=== PATIENT | female | born 1970 | race Caucasian/White ===

== ENCOUNTER 2022-01-11 00:19 | Emergency (ER) | payer OTHER ==
[~2022-01-11] VITALS: Ht 165.1 cm; Wt 108.0 kg
--- NOTE | 2022-01-11 00:47 | ED General ---
General Chief Complaint: General Problems/Pain Stated Complaint: CAN'T SLEEP,FEELS COLD,SHAKEY Source of Information: Patient (VERY VAGUE AND DIFFICULT HISTORIAN, AND NOT FORTHCOMING WITH INFORMATION) History of Present Illness Date Seen by Provider: Jan 11, 2022 Time Seen by Provider: 00:29 Initial Comments PT ARRIVES VIA POV FROM HOME STATES SHE "CAN'T SLEEP" AND SHE'S TIRED STATES HE FEELS COLD, AND SHE FEELS SHAKEY STATES "I JUST DON'T FEEL GOOD" BUT CANNOT ELABORATE AND UNABLE TO GIVE ANY SPECIFIC SYMPTOMS OF HOW SHE DOES NOT FEEL GOOD NO OTHER SYMPTOMS UNABLE TO STATE HOW LONG THIS HAS BEEN GOING ON STATES SHE HAS BEEN UNDER ALOT OF STRESS--TRYING TO HELP HER ELDERLY PARENTS PT CAN'T REMEMBER IF SHE HAS TAKEN HER BLOOD PRESSURE MEDICATION TODAY OR NOT--STATES "I MIGHT HAVE MISSED A DAY OR TWO" PT IS NOT COVID OR FLU VACCINATED PCP: DR. TINEO IN [place]--BUT STATES SHE JUST GOES TO URGENT CARE IF SHE NEEDS ANYTHING, AND SEES HIM ONCE OR TWICE A YEAR--HAS NOT SEEN HIM RECENTLY Allergies and Home Medications Allergies Coded Allergies: No Allergy Information Available (Unverified , 01/11/22) Patient Home Medication List Home Medication List Reviewed: Yes Hydroxyzine Pamoate (Hydroxyzine Pamoate) 50 Mg Capsule, 50 MG PO Q6H PRN for ANXIETY Prescribed by: TIFFANY PINEDA on 01/11/22 0224 Review of Systems Review of Systems Constitutional: see HPI EENTM: no symptoms reported Respiratory: no symptoms reported Cardiovascular: no symptoms reported Gastrointestinal: no symptoms reported Genitourinary: no symptoms reported Musculoskeletal: no symptoms reported Skin: no symptoms reported Psychiatric/Neurological: See HPI, Anxiety Hematologic/Lymphatic: No Symptoms Reported Immunological/Allergic: no symptoms reported Past Bfrkbdv-Nxvkgi-Fwqtsg Hx Patient Social History Tobacco Use?: No Substance use?: No Alcohol Use?: No Past Medical History Cardiac: Yes (NO BLOOD THINNERS FOR OVER 6 MONTHS) Deep Vein Thrombosis, Hypertension Neurological: No Genitourinary: No Gastrointestinal: No Musculoskeletal: No Endocrine: Yes (OBESITY) HEENT: No Cancer: No Psychosocial: Yes Sleep Difficulties, Anxiety Integumentary: No Blood Disorders: No Physical Exam Vital Signs Vital Signs - First Documented 01/11/22 00:29 Temp 36.2 Pulse 87 Resp 20 B/P (MAP) 188/97 (127) Pulse Ox 97 O2 Delivery Room Air Capillary Refill : Height, Weight, BMI Height: '" Weight: lbs. oz. kg; BMI Method: General Appearance: No Apparent Distress, WD/WN, Anxious, Obese Neck: Normal Inspection Respiratory: Chest Non Tender, Normal Breath Sounds, No Accessory Muscle Use, No Respiratory Distress Cardiovascular: Regular Rate, Rhythm, No Edema, No JVD, No Murmur, Normal Peripheral Pulses Gastrointestinal: Non Tender, Soft Back: No CVA Tenderness Extremity: Normal Capillary Refill, Normal Inspection, Normal Range of Motion, Non Tender, No Calf Tenderness, No Pedal Edema Neurologic/Psychiatric: Alert, Oriented x3, No Motor/Sensory Deficits, bar welder II- XII Norm as Tested, Other (ANXIOUS) Progress/Results/Core Measures Suspected Sepsis SIRS Temperature: Pulse: Respiratory Rate: Laboratory Tests 01/11/22 00:41: White Blood Count 11.0 Blood Pressure / Mean: Laboratory Tests 01/11/22 00:41: Creatinine 0.84, INR Comment 0.9, Platelet Count 378, Total Bilirubin 0.4 Results/Orders Lab Results Laboratory Tests Test 01/11/22 00:36 01/11/22 00:41 01/11/22 00:47 01/11/22 01:33 Range/Units Influenza Type A (RT-PCR) Not Detected Not Detecte Influenza Type B (RT-PCR) Not Detected Not Detecte SARS-CoV-2 RNA (RT-PCR) Not Detected Not Detecte White Blood Count 11.0 4.3-11.0 10^3/uL Red Blood Count 4.97 3.80-5.11 10^6/uL Hemoglobin 13.7 11.5-16.0 g/dL Hematocrit 41 35-52 % Mean Corpuscular Volume 82 80-99 fL Mean Corpuscular Hemoglobin 28 25-34 pg Mean Corpuscular Hemoglobin Concent 34 32-36 g/dL Red Cell Distribution Width 13.0 10.0-14.5 % Platelet Count 378 130-400 10^3/uL Mean Platelet Volume 9.4 9.0-12.2 fL Immature Granulocyte % (Auto) 1 % Neutrophils (%) (Auto) 52 42-75 % Lymphocytes (%) (Auto) 38 12-44 % Monocytes (%) (Auto) 6 0-12 % Eosinophils (%) (Auto) 2 0-10 % Basophils (%) (Auto) 1 0-10 % Neutrophils # (Auto) 5.8 1.8-7.8 10^3/uL Lymphocytes # (Auto) 4.2 H 1.0-4.0 10^3/uL Monocytes # (Auto) 0.7 0.0-1.0 10^3/uL Eosinophils # (Auto) 0.3 0.0-0.3 10^3/uL Basophils # (Auto) 0.1 0.0-0.1 10^3/uL Immature Granulocyte # (Auto) 0.1 0.0-0.1 10^3/uL Prothrombin Time 12.9 12.2-14.7 SEC INR Comment 0.9 0.8-1.4 Activated Partial Thromboplast Time 29 24-35 SEC D-Dimer < 0.27 0.00-0.49 UG/ML Sodium Level 137 135-145 MMOL/L Potassium Level 4.0 3.6-5.0 MMOL/L Chloride Level 102 98-107 MMOL/L Carbon Dioxide Level 22 21-32 MMOL/L Anion Gap 13 5-14 MMOL/L Blood Urea Nitrogen 17 7-18 MG/DL Creatinine 0.84 0.60-1.30 MG/DL Estimat Glomerular Filtration Rate 84 BUN/Creatinine Ratio 20 Glucose Level 170 H 70-105 MG/DL Calcium Level 9.9 8.5-10.1 MG/DL Corrected Calcium 9.6 8.5-10.1 MG/DL Magnesium Level 2.0 1.6-2.4 MG/DL Total Bilirubin 0.4 0.1-1.0 MG/DL Aspartate Amino Transf (AST/SGOT) 47 H 5-34 U/L Alanine Aminotransferase (ALT/SGPT) 67 H 0-55 U/L Alkaline Phosphatase 102 40-136 U/L Total Creatine Kinase 128 29-168 U/L Creatine Kinase MB 1.4 <6.6 NG/ML Myoglobin 48.8 10.0-92.0 NG/ML Troponin I < 0.028 <0.028 NG/ML B-Type Natriuretic Peptide < 10.0 <100.0 PG/ML Total Protein 8.2 6.4-8.2 GM/DL Albumin 4.4 3.2-4.5 GM/DL Free Thyroxine 1.00 0.70-1.48 NG/DL TSH [place] Testing 6.32 H 0.35-4.94 UIU/ML Serum Alcohol < 10 <10 MG/DL Serum Test, Qualitative NEGATIVE NEGATIVE Urine Color YELLOW Urine Clarity CLEAR Urine pH 6.0 5-9 Urine Specific [place] 1.015 L 1.016-1.022 Urine Protein NEGATIVE NEGATIVE Urine Glucose (UA) NEGATIVE NEGATIVE Urine Ketones NEGATIVE NEGATIVE Urine Nitrite NEGATIVE NEGATIVE Urine Bilirubin NEGATIVE NEGATIVE Urine Urobilinogen 0.2 < = 1.0 MG/DL Urine Leukocyte Esterase NEGATIVE NEGATIVE Urine RBC (Auto) NEGATIVE NEGATIVE Urine RBC NONE /HPF Urine WBC RARE /HPF Urine Squamous Epithelial Cells 0-2 /HPF Urine Crystals NONE /LPF Urine Bacteria TRACE /HPF Urine Casts NONE /LPF Urine Mucus SMALL H /LPF Urine Culture Indicated NO Urine Opiates Screen NEGATIVE NEGATIVE Urine Oxycodone Screen NEGATIVE NEGATIVE Urine Methadone Screen NEGATIVE NEGATIVE Urine Propoxyphene Screen NEGATIVE NEGATIVE Urine Barbiturates Screen NEGATIVE NEGATIVE Ur Tricyclic Antidepressants Screen NEGATIVE NEGATIVE Urine Phencyclidine Screen NEGATIVE NEGATIVE Urine Amphetamines Screen NEGATIVE NEGATIVE Urine Methamphetamines Screen NEGATIVE NEGATIVE Urine Benzodiazepines Screen NEGATIVE NEGATIVE Urine Cocaine Screen NEGATIVE NEGATIVE Urine Cannabinoids Screen NEGATIVE NEGATIVE My Orders Orders - TIFFANY PINEDA DO Covid 19 Inhouse Test (01/11/22:29) Influenza A And B By Pcr (01/11/22:29) Isolation Central Supply Req (01/11/22:29) Ed Iv/Invasive Line Start (01/11/22 00:48) Ekg Tracing (01/11/22:48) Monitor-Rhythm Ecg Trace Only (01/11/22 00:48) Chest 1 View, Ap/Pa Only (01/11/22 00:48) Alcohol (01/11/22 00:48) Bnp [place] (01/11/22 00:48) Cbc With Automated Diff (01/11/22:48) Comprehensive Metabolic Panel (01/11/22:48) Creatine Kinase (01/11/22 00:48) Creatine Kinase Mb (01/11/22 00:48) Fibrin Degradation Products (01/11/22:48) Drug Screen Stat (Urine) (01/11/22 00:48) Magnesium (01/11/22 00:48) Protime With Inr (8/25/22 00:48) Partial Thromboplastin Time (01/11/22 00:48) Thyroid Analyzer (01/11/22 00:48) Ua Culture If Indicated (01/11/22 00:48) Myoglobin Serum (01/11/22 00:48) Troponin I [place] (01/11/22 00:48) Hcg,Qualitative Serum (01/11/22 01:22) Free T4 (Free Thyroxine) (01/11/22 00:41) Hydroxyzine Cap/Tab (Vistaril) (01/11/22 02:30) Vital Signs/I&O 01/11/22 01/11/22 01/11/22 00:29 00:29 02:24 Temp 36.2 Pulse 87 80 Resp 20 16 B/P (MAP) 188/97 (127) 156/96 Pulse Ox 97 96 O2 Delivery Room Air Room Air Room Air Capillary Refill : Progress Note : Progress Note PPE WORN COVID TESTING DONE PT CALMED SOME DURING ER STAY AND BP CAME DOWN WITHOUT TREATMENT ALL SYMPTOMS RESOLVED DURING ER STAY, WITHOUT TREATMENT HYDRALAZINE GIVEN PRIOR TO DISMISSAL TO HELP WITH BOTH SLEEP AND ANXIETY FOR TONIGHT. PT REPEATS MULTIPLE TIMES THROUGHOUT ER STAY--"IT'S JUST THAT I'M STRESSED AND I CAN'T SLEEP" ADMITS TO FREQUENTLY FORGETTING TO TAKE HER BLOOD PRESSURE MEDICATION, AND LATER STATES SHE IS SURE SHE DID NOT TAKE IT TODAY ADVISED OF IMPORTANCE OF NOT MISSING ANY DOSES OF HER BLOOD PRESSURE MEDICATION ALSO ADVISED OF IMPORTANCE OF FOLLOW UP WITH HER PCP FOR FURTHER CARE ECG Initial ECG Impression Date: Jan 11, 2022 Initial ECG Impression Time: 00:50 Initial ECG Rate: 81 Initial ECG Rhythm: Normal Sinus Initial ECG Impression: Normal Initial ECG Comparisson: No Previous ECG Available Diagnostic Imaging Comments CXR--NO ACUTE PROCESS, PENDING RADIOLOGIST REVIEW Reviewed: Reviewed by Me Departure Impression Primary Impression: HTN (hypertension) Additional Impressions: Anxiety Hyperglycemia Elevated TSH Disposition: HOME, SELF-CARE Condition: Improved Departure-Patient Inst. Decision time for Depature: 02:23 Referrals: TRELL GOMEZ MD (PCP) Primary Care Physician Patient Instructions: High Blood Sugar, Adult ED, High Blood Pressure ED, Anxiety, Adult ED, Tips to Help You [place] in Uncertain Times Add. Discharge Instructions: TAKE YOUR REGULAR MEDICATIONS PRESCRIBED--DO NOT MISS DOSES OF M EDICATIONS--GET A PILL ORGANIZER TO HELP REMIND YOU TO TAKE MEDICATIONS FOLLOW UP WITH YOUR REGULAR DR THIS WEEK FOR FURTHER CARE All discharge instructions reviewed with patient and/or family. Voiced understanding. Scripts Hydroxyzine Pamoate (Hydroxyzine Pamoate) 50 Mg Capsule 50 MG PO Q6H PRN for ANXIETY, #15 CAP Prov: TIFFANY PINEDA DO 01/11/22 TIFFANY PINEDA DO Jan 11, 2022 00:47
[2022-01-11 00:56] LABS: BASOPHILS # (AUTO) 0.1 10^3/uL (0.0-0.1); BASOPHILS % (AUTO) 1 % (0-10); EOSINOPHILS # (AUTO) 0.3 10^3/uL (0.0-0.3); EOSINOPHILS % (AUTO) 2 % (0-10); HEMATOCRIT 41 % (35-52); HEMOGLOBIN 13.7 g/dL (11.5-16.0); LYMPHOCYTES # (AUTO) 4.2 10^3/uL (1.0-4.0); LYMPHOCYTES % (AUTO) 38 % (12-44); MEAN CORPUSCULAR HEMOGLOBIN 28 pg (25-34); MEAN CORPUSCULAR HGB CONC 34 g/dL (32-36); MEAN CORPUSCULAR VOLUME 82 fL (80-99); MEAN PLATELET VOLUME 9.4 fL (9.0-12.2); MONOCYTES # (AUTO) 0.7 10^3/uL (0.0-1.0); MONOCYTES % (AUTO) 6 % (0-12); NEUTROPHILS # (AUTO) 5.8 10^3/uL (1.8-7.8); NEUTROPHILS % (AUTO) 52 % (42-75); PLATELET COUNT 378 10^3/uL (130-400)
[2022-01-11 01:08] LABS: ALBUMIN 4.4 GM/DL (3.2-4.5); CHLORIDE 102 MMOL/L (98-107); SODIUM 137 MMOL/L (135-145)
[2022-01-11 01:09] LABS: CALCIUM 9.9 MG/DL (8.5-10.1)
[2022-01-11 01:11] LABS: GLUCOSE 170 MG/DL (70-105); TOTAL PROTEIN 8.2 GM/DL (6.4-8.2)
[2022-01-11 01:12] LABS: CARBON DIOXIDE 22 MMOL/L (21-32)
[2022-01-11 01:13] LABS: BILIRUBIN,TOTAL 0.4 MG/DL (0.1-1.0)
[2022-01-11 01:14] LABS: ALKALINE PHOSPHATASE 102 U/L (40-136)
[2022-01-11 01:15] LABS: CREATININE SERUM 0.84 MG/DL (0.60-1.30); GFR ESTIMATED 84
[2022-01-11 01:16] LABS: BUN/CREATININE RATIO 20
[2022-01-11 01:17] LABS: ALANINE AMINOTRANSFERASE 67 U/L (0-55)
[2022-01-11 01:18] LABS: CREATINE KINASE 128 U/L (29-168)
[2022-01-11 01:25] LABS: CREATINE KINASE MB 1.4 NG/ML (<6.6)
[2022-01-11 01:27] LABS: FIBRIN DEGRADATION PRODUCTS < 0.27 UG/ML (0.00-0.49); INR 0.9 (0.8-1.4); PARTIAL THROMBOPLASTIN TIME 29 SEC (24-35); PROTHROMBIN TIME PATIENT 12.9 SEC (12.2-14.7)
[2022-01-11 01:37] LABS: BILIRUBIN,URINE NEGATIVE (NEGATIVE); CLARITY,URINE CLEAR; COLOR,URINE YELLOW; GLUCOSE, URINE (UA) NEGATIVE (NEGATIVE); KETONES,URINE NEGATIVE (NEGATIVE); LEUKOCYTE ESTERASE ,URINE NEGATIVE (NEGATIVE); NITRITE,URINE NEGATIVE (NEGATIVE); PROTEIN,URINE NEGATIVE (NEGATIVE)
[2022-01-11 01:38] LABS: TSH (THYROID ANALYZER) 6.32 UIU/ML (0.35-4.94)
[2022-01-11 01:46] LABS: BACTERIA,URINE TRACE /HPF; SQUAMOUS EPITHELIAL CELL,UR 0-2 /HPF; WBC,URINE RARE /HPF
[2022-01-11 02:04] LABS: AMPHETAMINE SCREEN, URINE NEGATIVE (NEGATIVE); BARBITURATE SCREEN URINE NEGATIVE (NEGATIVE); BENZODIAZEPINES SCREEN URINE NEGATIVE (NEGATIVE); CANNABINOID SCREEN, URINE NEGATIVE (NEGATIVE); COCAINE SCREEN URINE NEGATIVE (NEGATIVE); METHADONE STAT NEGATIVE (NEGATIVE); OPIATE SCREEN URINE NEGATIVE (NEGATIVE); OXYCODONE STAT NEGATIVE (NEGATIVE); PROPOXYPHENE STAT NEGATIVE (NEGATIVE); TRICYCLIC ANTIDEPRESSANTS SCRE NEGATIVE (NEGATIVE)
[2022-01-11 02:24] VITALS: BP 156/96
[2022-01-11] MEDS ORDERED: HYDR50CA3 PO (02:24)
[2022-01-11] MEDS: hydrOXYzine (VISTARIL/ATARAX) 25 MG capsule/tablet PO ONE ×2 (02:37→02:55)
--- NOTE | 2022-01-11 06:05 | Diagnostic Imaging Report ---
INDICATION: Chest pain. No prior examinations are available for comparison. FINDINGS: There is cardiomegaly. There is some minimal venous congestion. There is no pleural effusion or pneumothorax. The mediastinum is unremarkable. IMPRESSION: Cardiomegaly and some minimal central pulmonary venous congestion. Dictated by: Dictated on workstation # [id number]
== END 2022-01-11 02:58 | disposition home or self-care (01) ==
LOC: ER 00:25
DX: I10 Essential (primary) hypertension (principal); F41.9 Anxiety disorder, unspecified; R94.6 Abnormal results of thyroid function studies; R73.9 Hyperglycemia, unspecified; E66.9 Obesity, unspecified; Z20.822 Contact with and (suspected) exposure to COVID-19; Z28.310 Unvaccinated for COVID-19
CPT/HCPCS: 71045; 80053; 80306; 81000; 82550; 82553; 83735; 83874; 83880; 84439; 84443; 84484; 84703; 85025; 85379; 85610; 85730; 87636; 93005; 93041; 99284; G0480; 36415; 80320

== ENCOUNTER 2023-04-25 01:15 | Emergency (ER) | payer OTHER ==
[~2023-04-25] VITALS: Ht 165.1 cm; Wt 113.0 kg
[~2023-04-25 01:15] MED LIST: HYDR50CA3 PO
--- NOTE | 2023-04-25 01:40 | ED General ---
General Stated Complaint: NAUSEA/SHAKEY/ANXIOUS Source of Information: Patient (VERY VAGUE AND DIFFICULT HISTORIAN), Old Records History of Present Illness Date Seen by Provider: Apr 25, 2023 Time Seen by Provider: 01:35 Initial Comments PT ARRIVES VIA POV FROM HOME PT STATES "I JUST DON'T KNOW HOW TO DESCRIBE IT" "I JUST DIDN'T FEEL WELL" STATES SHE IS FEELING ANXIOUS AND SHAKEY--HAS HAD THIS BEFORE STATES SHE "GOT TO BED REALLY LATE" , WENT TO SLEEP AND "IT JOLTED ME AWAKE" AND THEN AFTER SHE WOKE UP HER HEART STARTED RACING AND SHE "JUST DIDN'T FEEL GOOD" AND THEN SHE HAD NAUSEA AND DRY HEAVES NO CHEST PAIN NO SHORTNESS OF BREATH NO SWEATS NO DIZZINESS OR SYNCOPE PT STATES SHE HAS SLEEP APNEA AND WEARS CPAP, AND DID HAVE IT ON WHEN SHE WENT TO BED AND IT WAS STILL ON WHEN SHE WOKE UP SHE STATES SHE HAS HAD "SINUS [id number]" FOR THE LAST COUPLE OF DAYS, SHE HAS FELT REALLY TIRED, AND HAS HAD DIARRHEA FOR THE LAST FEW DAYS. SHE STATES SHE HAS IBS AND THOUGHT DIARRHEA WAS FROM THAT NO ABDOMINAL PAIN NO URINARY SYMPTOMS NO FEVER AT ANY TIME NO HEADACHE NO BODY ACHES NO PARESTHESIAS OR MOTOR DEFICITS PT HAS BEEN EATING AND DRINKING NORMALLY, AND URINATING NORMALLY PT IS NOT COVID OR FLU VACCINATED SHE ALSO HAS HISTORY OF HTN, AND ANXIETY SHE IS DEBORAH-MENOPAUSAL, WITH LMP 01/02/23. SHE STATES SHE WAS DX WITH DIABETES A COUPLE OF MONTHS AGO AND WAS STARTED ON METFORMIN. SHE HAS GLUCOMETER, BUT HAS NOT BEEN CHECKING HER BLOOD SUGAR. SHE STATES SHE HAS NOT MISSED ANY DOSES OF ANY OF HER MEDICATIONS AND ALWAYS WEARS HER CPAP AT NIGHT. PCP: DR. GOMEZ IN [place]--SAW HIM A COUPLE OF MONTHS AGO, AND HAS AN JOSH OINTMENT LATER THIS MONTH FOR FOLLOW UP Allergies and Home Medications Allergies Coded Allergies: No Allergy Information Available (Unverified , 01/11/22) Patient Home Medication List Home Medication List Reviewed: Yes Hydroxyzine Pamoate (Hydroxyzine Pamoate) 50 Mg Capsule, 50 MG PO Q6H PRN for ANXIETY Prescribed by: TIFFANY PINEDA on 01/11/22 0224 Review of Systems Review of Systems Constitutional: see HPI EENTM: see HPI Respiratory: see HPI Cardiovascular: see HPI Gastrointestinal: see HPI Genitourinary: no symptoms reported Musculoskeletal: no symptoms reported Skin: no symptoms reported Psychiatric/Neurological: See HPI Hematologic/Lymphatic: No Symptoms Reported Immunological/Allergic: no symptoms reported Past Qfhlxzq-Fgsqrs-Kaqeym Hx Patient Social History Tobacco Use?: No Smoking Status: Never a Smoker Smokeless Tobacco Frequency: Never a User Use of E-Cig and/or Vaping dev: No Use of E-Cig and/or Vaping [place]: Never a User Substance use?: No Alcohol Use?: No Immunizations Up To Date First/Initial COVID19 Vaccinat: NOPE Second COVID19 Vaccination Luis: NOPE Third COVID19 Vaccination Date: NOPE Past Medical History Surgeries: Yes ( X 1) Section, Tonsillectomy Respiratory: Yes Sleep Apnea Currently Using CPAP: Yes Cardiac: Yes (NO BLOOD THINNERS FOR OVER 6 MONTHS) Deep Vein Thrombosis, Hypertension Neurological: No Reproductive Disorders: No Genitourinary: No Gastrointestinal: No Musculoskeletal: No Endocrine: Yes (OBESITY) Diabetes, Non-Insulin dep HEENT: Yes (S/P TONSILLECTOMY) Tonsilitis Cancer: No Psychosocial: Yes Sleep Difficulties, Anxiety Integumentary: No Blood Disorders: No Physical Exam Vital Signs Vital Signs - First Documented 04/25/23 01:32 Temp 36.1 Pulse 80 Resp 20 B/P (MAP) 153/91 (111) Pulse Ox 95 O2 Delivery Room Air Capillary Refill : Height, Weight, BMI Height: '" Weight: lbs. oz. kg; 39.00 BMI Method: General Appearance: No Apparent Distress, WD/WN, Obese HEENT: PERRL/EOMI, Normal ENT Inspection Neck: Full Range of Motion, Normal Inspection, Non Tender, Supple Respiratory: Chest Non Tender, Normal Breath Sounds, No Accessory Muscle Use, No Respiratory Distress Cardiovascular: Regular Rate, Rhythm, No Edema, No Murmur, Normal Peripheral Pulses Gastrointestinal: Normal Bowel Sounds, Non Tender, Soft Back: No CVA Tenderness Extremity: Normal Capillary Refill, Normal Inspection, Normal Range of Motion, Non Tender, No Calf Tenderness, No Pedal Edema Neurologic/Psychiatric: Alert, Oriented x3, No Motor/Sensory Deficits, doweler II- XII Norm as Tested Skin: Normal Color, Warm/Dry Progress/Results/Core Measures Suspected Sepsis SIRS Temperature: Pulse: Respiratory Rate: Laboratory Tests 04/25/23 02:13: White Blood Count 11.8H Blood Pressure / Mean: Laboratory Tests 04/25/23 02:13: Creatinine 0.84, Platelet Count 355, Total Bilirubin 0.2 Results/Orders Lab Results Laboratory Tests Test 04/25/23 01:42 04/25/23 01:49 04/25/23 02:06 04/25/23 02:13 Range/Units Influenza Type A (RT-PCR) Not Detected Not Detecte Influenza Type B (RT-PCR) Not Detected Not Detecte SARS-CoV-2 RNA (RT-PCR) Not Detected Not Detecte Urine Color YELLOW Urine Clarity CLEAR Urine pH 7.0 5-9 Urine Specific [place] 1.020 1.016-1.022 Urine Protein NEGATIVE NEGATIVE Urine Glucose (UA) NEGATIVE NEGATIVE Urine Ketones NEGATIVE NEGATIVE Urine Nitrite NEGATIVE NEGATIVE Urine Bilirubin NEGATIVE NEGATIVE Urine Urobilinogen 0.2 < = 1.0 MG/DL Urine Leukocyte Esterase NEGATIVE NEGATIVE Urine RBC (Auto) NEGATIVE NEGATIVE Urine RBC NONE /HPF Urine WBC NONE /HPF Urine Squamous Epithelial Cells 0-2 /HPF Urine Crystals NONE /LPF Urine Bacteria TRACE /HPF Urine Casts NONE /LPF Urine Mucus NEGATIVE /LPF Urine Culture Indicated NO Glucometer 180 H 70-110 MG/DL White Blood Count 11.8 H 4.3-11.0 10^3/uL Red Blood Count 4.71 3.80-5.11 10^6/uL Hemoglobin 13.2 11.5-16.0 g/dL Hematocrit 39 35-52 % Mean Corpuscular Volume 84 80-99 fL Mean Corpuscular Hemoglobin 28 25-34 pg Mean Corpuscular Hemoglobin Concent 34 32-36 g/dL Red Cell Distribution Width 12.6 10.0-14.5 % Platelet Count 355 130-400 10^3/uL Mean Platelet Volume 9.6 9.0-12.2 fL Immature Granulocyte % (Auto) 1 % Neutrophils (%) (Auto) 60 42-75 % Lymphocytes (%) (Auto) 30 12-44 % Monocytes (%) (Auto) 7 0-12 % Eosinophils (%) (Auto) 2 0-10 % Basophils (%) (Auto) 1 0-10 % Neutrophils # (Auto) 7.1 1.8-7.8 10^3/uL Lymphocytes # (Auto) 3.5 1.0-4.0 10^3/uL Monocytes # (Auto) 0.8 0.0-1.0 10^3/uL Eosinophils # (Auto) 0.3 0.0-0.3 10^3/uL Basophils # (Auto) 0.1 0.0-0.1 10^3/uL Immature Granulocyte # (Auto) 0.1 0.0-0.1 10^3/uL Sodium Level 137 135-145 MMOL/L Potassium Level 4.1 3.6-5.0 MMOL/L Chloride Level 105 98-107 MMOL/L Carbon Dioxide Level 23 21-32 MMOL/L Anion Gap 9 5-14 MMOL/L Blood Urea Nitrogen 13 7-18 MG/DL Creatinine 0.84 0.60-1.30 MG/DL Estimat Glomerular Filtration Rate 83 BUN/Creatinine Ratio 15 Glucose Level 181 H 70-105 MG/DL Calcium Level 9.2 8.5-10.1 MG/DL Corrected Calcium 9.3 8.5-10.1 MG/DL Magnesium Level 2.1 1.6-2.4 MG/DL Total Bilirubin 0.2 0.1-1.0 MG/DL Aspartate Amino Transf (AST/SGOT) 21 5-34 U/L Alanine Aminotransferase (ALT/SGPT) 32 0-55 U/L Alkaline Phosphatase 95 40-136 U/L Troponin I < 0.028 <0.028 NG/ML Total Protein 7.2 6.4-8.2 GM/DL Albumin 3.9 3.2-4.5 GM/DL TSH [place] Testing 7.09 H 0.35-4.94 UIU/ML My Orders Orders - TIFFANY PINEDA DO Covid 19 Inhouse Test (04/25/23 01:39) Ekg Tracing (04/25/23:39) Monitor-Rhythm Ecg Trace Only (04/25/23:39) Cbc And Automated Diff (04/25/23:39) Comprehensive Metabolic Panel (04/25/23:39) Magnesium (04/25/23:39) Thyroid Analyzer (04/25/23:39) Ua Culture If Indicated (04/25/23:39) Troponin I [place] (04/25/23:39) Influenza A And B By Pcr (04/25/23 01:39) Urine Bedside (04/25/23 01:41) Accucheck Stat ONCE (04/25/23 02:04) Ed Iv/Invasive Line Start (04/25/23 02:04) Free T4 (Free Thyroxine) (04/25/23 02:13) Vital Signs/I&O 04/25/23 01:32 Temp 36.1 Pulse 80 Resp 20 B/P (MAP) 153/91 (111) Pulse Ox 95 O2 Delivery Room Air Capillary Refill : Progress Note : Progress Note VITALS ON ARRIVAL: TEMP 36.1=97.0, HR 80, RR 20, BP 153/91, O2 SAT 95% ON ROOM AIR ACCUCHECK 180 LABS: -CBC NORMAL -CMP WITH GLUCOSE 181, OTHERWISE BRIGIDO -MG NORMAL -TROPONIN NEGATIVE -BNP NORMAL -TSH 7.09 -UA CLEAR -HCG NEGATIVE -COVID/FLU NEGATIVE EKG NORMAL PT HAD NO SYMPTOMS DURING ER STAY VITALS STABLE DISCUSSED TEST RESULTS, ANTICIPATED COURSE, SYMPTOMATIC TREATMENT, NEED FOR FOLLOW UP AND RETURN PRECAUTIONS REVIEWED PRIOR ER RECORD--ONLY 1 OTHER VISIT ECG Initial ECG Impression Date: Apr 25, 2023 Initial ECG Impression Time: 01:59 Initial ECG Rate: 79 Initial ECG Rhythm: Normal Sinus Initial ECG Intervals: Normal Initial ECG Impression: Normal Initial ECG Comparisson: Unchanged Comment INTERPRETED BY ME Departure Impression Primary Impression: Palpitations Additional Impressions: Anxiety HTN (hypertension) NIDDM Elevated TSH Deborah-menopausal Disposition: 01 HOME, SELF-CARE Condition: Stable Departure-Patient Inst. Decision time for Depature: 03:07 Referrals: TRELL GOMEZ MD (PCP) Primary Care Physician Patient Instructions: Anxiety, Adult ED, DASH Diet, High Blood Pressure ED, Palpitations ED, Type 2 Diabetes (DC), Thyroid Stimulating Hormone Test Add. Discharge Instructions: HOME, REST CONTINUE YOUR REGULAR MEDICATIONS PRESCRIBED FOLLOW UP WITH YOUR DR FOR FURTHER CARE RETURN TO ER IF SYMPTOMS WORSEN TIFFANY PINEDA DO Apr 25, 2023 01:40
[2023-04-25 01:53] LABS: CLARITY,URINE CLEAR; COLOR,URINE YELLOW; GLUCOSE, URINE (UA) NEGATIVE (NEGATIVE); PROTEIN,URINE NEGATIVE (NEGATIVE)
[2023-04-25 01:54] LABS: BILIRUBIN,URINE NEGATIVE (NEGATIVE); KETONES,URINE NEGATIVE (NEGATIVE); LEUKOCYTE ESTERASE ,URINE NEGATIVE (NEGATIVE); NITRITE,URINE NEGATIVE (NEGATIVE)
[2023-04-25 02:02] LABS: BACTERIA,URINE TRACE /HPF; SQUAMOUS EPITHELIAL CELL,UR 0-2 /HPF
[2023-04-25 02:20] LABS: BASOPHILS # (AUTO) 0.1 10^3/uL (0.0-0.1); BASOPHILS % (AUTO) 1 % (0-10); EOSINOPHILS # (AUTO) 0.3 10^3/uL (0.0-0.3); EOSINOPHILS % (AUTO) 2 % (0-10); HEMATOCRIT 39 % (35-52); HEMOGLOBIN 13.2 g/dL (11.5-16.0); LYMPHOCYTES # (AUTO) 3.5 10^3/uL (1.0-4.0); LYMPHOCYTES % (AUTO) 30 % (12-44); MEAN CORPUSCULAR HEMOGLOBIN 28 pg (25-34); MEAN CORPUSCULAR HGB CONC 34 g/dL (32-36); MEAN CORPUSCULAR VOLUME 84 fL (80-99); MEAN PLATELET VOLUME 9.6 fL (9.0-12.2); MONOCYTES # (AUTO) 0.8 10^3/uL (0.0-1.0); MONOCYTES % (AUTO) 7 % (0-12); NEUTROPHILS # (AUTO) 7.1 10^3/uL (1.8-7.8); NEUTROPHILS % (AUTO) 60 % (42-75); PLATELET COUNT 355 10^3/uL (130-400); WHITE BLOOD COUNT 11.8 10^3/uL (4.3-11.0)
[2023-04-25 02:29] LABS: ALBUMIN 3.9 GM/DL (3.2-4.5)
[2023-04-25 02:30] LABS: CHLORIDE 105 MMOL/L (98-107); POTASSIUM 4.1 MMOL/L (3.6-5.0); SODIUM 137 MMOL/L (135-145)
[2023-04-25 02:31] LABS: CALCIUM 9.2 MG/DL (8.5-10.1)
[2023-04-25 02:32] LABS: GLUCOSE 181 MG/DL (70-105); TOTAL PROTEIN 7.2 GM/DL (6.4-8.2)
[2023-04-25 02:33] LABS: CARBON DIOXIDE 23 MMOL/L (21-32)
[2023-04-25 02:34] LABS: BILIRUBIN,TOTAL 0.2 MG/DL (0.1-1.0)
[2023-04-25 02:35] LABS: ALKALINE PHOSPHATASE 95 U/L (40-136)
[2023-04-25 02:36] LABS: CREATININE SERUM 0.84 MG/DL (0.60-1.30); GFR ESTIMATED 83
[2023-04-25 02:37] LABS: BUN/CREATININE RATIO 15
[2023-04-25 02:38] LABS: ALANINE AMINOTRANSFERASE 32 U/L (0-55)
[2023-04-25 02:39] LABS: MAGNESIUM 2.1 MG/DL (1.6-2.4)
[2023-04-25 02:59] LABS: TSH (THYROID ANALYZER) 7.09 UIU/ML (0.35-4.94)
[2023-04-25 03:22] VITALS: BP 146/89
[2023-04-25 03:34] LABS: FREE T4 (FREE THYROXINE) 0.94 NG/DL (0.70-1.48)
== END 2023-04-25 03:22 | disposition home or self-care (01) ==
LOC: EDUNIT# 01:15 → ER 01:19
DX: F41.9 Anxiety disorder, unspecified (principal); I10 Essential (primary) hypertension; E11.9 Type 2 diabetes mellitus without complications; R94.6 Abnormal results of thyroid function studies; G47.30 Sleep apnea, unspecified; E66.9 Obesity, unspecified; Z68.39 Body mass index [BMI] 39.0-39.9, adult; Z99.89 Dependence on other enabling machines and devices; Z78.0 Asymptomatic menopausal state; Z79.84 Long term (current) use of oral hypoglycemic drugs
CPT/HCPCS: 36415; 80053; 81000; 82947; 83735; 84439; 84443; 84484; 84703; 85025; 87636; 93005; 93041